=== PATIENT | male | born 2000 | race Caucasian/White ===

== ENCOUNTER 2019-05-02 04:07 | Emergency (ER) | payer OTHER ==
--- NOTE | 2019-05-02 04:36 | ED ---
GI/ HPI - HPI Summary HPI Summary: The patient is a 19 y/o M presenting to [facility] with a chief complaint of left testicular pain for the last two weeks with worsening last night at . He reports that the pain is accompanied by mild swelling. He thought that the symptoms had been improving as they mostly resolved, but they returned last night, causing him to wake up in more pain than he went to sleep with. Currently , his symptoms are rated 6/10 in severity. He denies fever. He states that he hasnt had this before, and he has seen a provider at [facility], for which he was given two different abx (Levofloxin, Doxycycline) although he doesnt believe that they have helped as his pain has continued. No hx of hernia or abd surgery. PMHx: none. Nonsmoker, no EtOH, no substance use. Medications reviewed. Allergies noted. - History of Current Complaint Chief Complaint: EDUrogenitalProblems Time Seen by Provider: 05/02/19 04:25 Stated Complaint: TESTICULAR PAIN PER PT Hx Obtained From: Patient Onset/Duration: Started Hours Ago - last night, Still Present Timing: Lasting Hours Severity: Mild Current Severity: Moderate Pain Intensity: 6 Additional Locations for Males: Testicles - left Pain Characteristics: Dull Associated Signs and Symptoms: Positive: Other: - mild swelling in left testicle. Negative: Fever Aggravating Factor(s): Nothing Alleviating Factor(s): Nothing - abx to no relief - Allergy/Home Medications Allergies/Adverse Reactions: Allergies Allergy/AdvReac Type Severity Reaction Status Date / Time No Known Allergies Allergy Verified 05/02/19 04:10 Home Medications: Home Medications DOXYcycline CAP(*) [DOXYcycline 100MG CAP(*)] 100 mg PO BID 05/02/19 [History Confirmed 05/02/19] PMH/Surg Hx/FS Hx/Imm Hx Endocrine/Hematology History: Denies: Hx Diabetes Respiratory History: Denies: Hx Asthma Sensory History: Denies: Hx Legally Blind, Hx Deafness Opthamlomology History: Denies: Hx Legally Blind EENT History: Denies: Hx Deafness - Surgical History Surgical History: None Surgery Procedure, Year, and Place: none Infectious Disease History: No Infectious Disease History: Denies: Traveled Outside the [place] in Last 30 Days - Family History Known Family History: Negative: Hypertension, Diabetes Review of Systems Negative: Fever Positive: other - left testicular pain with swelling All Other Systems Reviewed And Are Negative: Yes Physical Exam - Summary Physical Exam Summary: Appearance: Well-appearing, Well-nourished, lying in bed comfortably Skin: Warm, dry, no obvious rash Eyes: sclera anicteric, no conjunctival pallor ENT: mucous membranes moist, pharynx appears normal Neck: Supple, nontender Respiratory: Clear to auscultation, no signs of respiratory distress Cardiovascular: Normal S1, S2. No murmurs. Normal distal pulses in tibial and radial bilaterally. Abdomen: Soft, nontender, normal active bowel sounds present : No hernias in the groin but there is some slight tenderness bilaterally, Penis is normal, Right testicle is non-tender, Left testicle is low-lying and mildly swollen and tender, No blue dot sign, No discrete epididymal tenderness Musculoskeletal: Normal, Strength/ROM Intact Neurological: A&Ox3, awake and alert, mentation is normal, speech is fluent and appropriate Psychiatric: affect is normal, does not appear anxious or depressed Triage Information Reviewed: Yes Vital Signs On Initial Exam: Initial Vitals Temp Pulse Resp BP Pulse Ox 98.3 F 78 15 142/85 98 05/02/19 04:07 05/02/19 04:07 05/02/19 04:07 05/02/19 04:07 05/02/19 04:07 Vital Signs Reviewed: Yes Diagnostics - Vital Signs Vital Signs Temp Pulse Resp BP Pulse Ox 05/02/19 04:07 98.3 F 78 15 142/85 98 - Laboratory Lab Statement: Any lab studies that have been ordered have been reviewed, and results considered in the medical decision making process. - Ultrasound Testicular US Ultrasound Interpretation Completed By: Radiologist Summary of Ultrasound Findings: Impression: Normal scrotal ultrasound. ED physician has reviewed this imaging report. Re-Evaluation - Re-Evaluation First Eval Re-Evaluation Time: 06:40 Change: Unchanged Comment: We discussed US results and discharge plan. GIGU Course/Dx - Course Course Of Treatment: Pt is a 19 y/o M with cc of left testicular pain and swelling with initial onset two weeks ago without improvement of two abx treatments since and worsening of the pain last night around 1900/1999. Upon physical exam, the pt appears to not have any hernias in the groin, but there is some slight tenderness in the bilateral areas with a non-tender right testicle and a low-lying, mildly tender and swollen left testicle, no blue dot sign or discrete epididymal tenderness. Testicular ultrasound is normal. We discussed all results and plan for discharge home with follow up with urology. He understands and agrees with this plan. Dx of testicular pain. - Diagnoses Provider Diagnoses: Testicular pain Discharge ED - Sign-Out/Discharge Documenting (check all that apply): Patient Departure - Patient will be discharged home. Patient Received Moderate/Deep Sedation with Procedure: No - Discharge Plan Condition: Good Disposition: HOME Patient Education Materials: Testicle Pain (ED) Additional Instructions: You will need to see a urologist to get a better diagnosis. I have given you contact information for our local group but if you have to go elsewhere the report can easily be faxed, just ask the office staff about that. In the meantime use ice and motrin to help with the pain. - Billing Disposition and Condition Condition: GOOD Disposition: Home - Attestation Statements Document Initiated by Liz: Yes Documenting Scribe: Moni Contreras Provider For Whom Liz is Documenting (Include Credential): Dr. Jun Ortiz MD Scribe Attestation: I, Moni Contreras, scribed for Dr. Jun Ortiz MD on 05/07/19 at 1237. Scribe Documentation Reviewed: Yes Provider Attestation: The documentation as recorded by the Moni lincoln accurately reflects the service I personally performed and the decisions made by me, Dr. Jun Ortiz MD Status of Scribe Document: Viewed
[2019-05-02 07:01] VITALS: BP 125/67
== END 2019-05-02 07:01 | disposition home or self-care (01) ==
LOC: ED 04:07
DX: N50.812 Left testicular pain (principal)
CPT/HCPCS: 76870; 99282